=== PATIENT | male | born 1995 | race Two or more races ===

== ENCOUNTER 2025-04-21 06:30 | Day surgery (SDC) | payer MEDICAID, SELFPAY ==
[2025-04-19 09:03] VITALS: BMI 31.1
[2025-04-19 10:39] LABS: Basophils # (Auto) 0.1 Thou/mm3 (0.0-0.2); Basophils % (Auto) 1 % (0-2.5); Eosinophils # (Auto) 0.3 Thou/mm3 (0.0-0.5); Eosinophils % (Auto) 4 % (0-10); Hematocrit 41.6 % (41.0-53.0); Hemoglobin 13.8 g/dL (13.5-16.0); Immature Granulocytes Auto 0.02 Thou/mm3 (0.00-0.00); Lymphocytes # (Auto) 2.5 Thou/mm3 (1.0-4.8); Lymphocytes % (Auto) 35 % (10-50); Mean Corpuscular HGB Conc 33.2 g/dl (31.0-37.0); Mean Corpuscular Hemoglobin 29.2 pg (25.0-35.0); Mean Corpuscular Volume 88 fL (80-100); Monocytes # (Auto) 0.6 Thou/mm3 (0.0-0.8); Monocytes % (Auto) 8 % (0-12); Neutrophils # (Auto) 3.7 Thou/mm3 (1.8-7.7); Neutrophils % (Auto) 52 % (37-80); Nucleated Red Blood Cell # 0.00 Thou/mm3 (0.00-0.00); Nucleated Red Blood Cell % 0 /100 WBC (0); Platelet Count 192 Thou/mm3 (140-440); RDW Standard Deviation 42.6 fL (35.1-43.9); Red Blood Count 4.72 Miln/mm3 (4.50-5.90); White Blood Count 7.2 Thou/mm3 (3.8-10.6)
[2025-04-19 10:47] LABS: Anion Gap 9 (7-16); BUN/Creatinine Ratio 13 Ratio (12-20); Blood Urea Nitrogen 15 mg/dL (9-23); Calcium 9.2 mg/dL (8.3-10.6); Carbon Dioxide 26.6 mMol/L (20.0-31.0); Chloride 106 mMol/L (98-107); Creatinine (Component) 1.2 mg/dL (0.6-1.3); Estimated Creatinine Clearance 92.5 mL/min (>60); Glucose 103 mg/dL (74-106); Osmolality,Calculated 283 (275-295); Potassium 3.9 mMol/L (3.4-5.1); Sodium 142 mMol/L (136-145); eGFR > 60 See Note
--- NOTE | 2025-04-20 13:54 | ESHP_ITS ---
RE: NEEMA BECKMAN : 1995 DATE OF ADMISSION: 04/20/2025 HISTORY OF PRESENT ILLNESS: Patient is a 29-year-old male. He is desiring bilateral vasectomy for family planning. He has 4 children. PAST SURGICAL HISTORY: Previous surgery included left leg surgery. PAST MEDICAL HISTORY: Patient does not have any history of diabetes mellitus or no history of hypertension. ALLERGIES: NONE KNOWN. MEDICATIONS: None. PHYSICAL EXAMINATION: HEENT: Normal. Neck: Supple. Lungs: Clear. Cardiovascular: Heart sounds are normal. Abdomen: Soft without any organomegaly, no guarding, no rigidity. Extremities: Normal. : Phallus is normal, testes are down in the scrotum. Rectal examination was not performed. IMPRESSION: Patient desiring bilateral vasectomy. PLAN: Plan is bilateral vasectomy. Planned procedure, risks and complications have been discussed with the patient. Patient has understood them and agreed to proceed. DT: 13:47:28 TT: 13:52:00 Ref: [id number] - TID: [id number]
[2025-04-21] VITALS (8 sets, daily range): BP systolic 91–122; BP diastolic 60–78; PULSE 70–106; RESP 14–20; TEMP 36.4–36.5; O2SAT 94–99; BMI 30.3
--- NOTE | 2025-04-21 09:26 | SUR.PHASEI ---
0926: pt received from OR via [employer]. received report from TALHA Sethi and Per Nuñez CRNA. pt sleepy with nasal airway in place. no s/s of resp. distress or discomfort. no s/s of pain or discomfort. dressing to penis clean, dry and intact. scrotal support in place.
--- NOTE | 2025-04-21 09:27 | SUR.PHASEI ---
0927: removed nasal airway at this time, tolerated well.
--- NOTE | 2025-04-21 09:44 | SUR.PHASEI ---
0944: pt able to open his eyes but drifts back to sleep. no s/s of resp. distress or discomfort. denies any pain or discomfort.
--- NOTE | 2025-04-21 09:55 | SUR.PHASEI ---
0955: pt arousable and able open to eyes but drifts back to sleep. no s/s of resp. distress or discomfort. denies any pain or discomfort when asked. dressing to penis clean, dry and intact. scrotal support in place.
--- NOTE | 2025-04-21 10:01 | SUR.PHASEII ---
1001: pt awake and alert. able to drink water with ice chips without any difficulty.
--- NOTE | 2025-04-21 10:41 | SUR.PHASEII ---
1041: pt sitting down in the wheelchair ready for discharge. pt requested to talk to Dr. Chung for excuse letter for his work, waiting Dr. Chung at this time. Emy with the patient. no s/s of resp. distress or discomfort. denies any pain or discomfort. all belongings brought given back to patient.
--- NOTE | 2025-04-21 10:41 | SUR.PHASEII ---
1041: discharge instructions given to Emy and pt, verbalizes understanding. pt alert and oriented. no s/s of resp. distress or discomfort. denies any pain or discomfort. dressing to penis clean, dry and intact. scrotal support in place.
--- NOTE | 2025-04-21 10:55 | SUR.PHASEII ---
1055: Dr. Chung talked to patient and . Per MD, okayed to be off for a week. Dr's note will be given on Thursday in his office. Pt alert and oriented. no s/s of resp. distress or discomfort. denies any pain or discomfort. dressing to penis clean, dry and intact with scrotal support. discharge patient visa wheelchair at this time.
--- NOTE | 2025-04-21 11:46 | ESOP_ITS ---
RE: NEEMA BECKMAN : 1995 DATE OF OPERATION: 04/21/2025 PREOPERATIVE DIAGNOSIS: Patient desiring bilateral vasectomy for family planning. POSTOPERATIVE DIAGNOSIS: Patient desiring bilateral vasectomy for family planning. PROCEDURE PERFORMED: Bilateral vasectomy. ANESTHESIA: General. INDICATION: Patient is a 30-year-old gentleman desiring bilateral vasectomy for family planning. He was now scheduled for bilateral vasectomy. Planned procedure, risks, and complications have been discussed with the patient. Patient understood them and agreed to proceed. DESCRIPTION OF PROCEDURE: After the patient was brought to the operating table under adequate general anesthesia in supine position, parts were prepped and draped in the usual fashion. Right vas deferens was made subcutaneous. Transverse incision of 0.5 cm was made over the right vas deferens. Skin and subcutaneous tissues were incised. A small segment of the vas deferens was isolated and 2 clamps were placed on the vas deferens and the segment between the clamps was excised and was sent for histological examination. The end of the vas deferens were fulgurated and ligated using 3-0 chromic catgut sutures. Complete hemostasis was obtained. Skin wound was closed with interrupted sutures of 3-0 chromic catgut. In a similar fashion, the left sided vasectomy was also done. Local anesthetic was injected at the site of the skin. Sterile dressing was then applied. Patient was then transferred to the recovery room in a satisfactory condition having tolerated the entire procedure well. Sponge count and needle count at the end of the procedure was found to be correct. Estimated blood loss was minimal. DT: 11:16:12 TT: 11:45:00 Ref: [id number] - TID: [id number]
== END 2025-04-21 10:55 | disposition home or self-care (01) ==
PROVIDERS: PCP Family Medicine; Referring Provider Surgery; Visit Provider Surgery
PROC: (CPT 55250; principal; 2025-04-21 08:30)
DX: Z30.2 Encounter for sterilization (principal)
CPT/HCPCS: 55250; 36415; 80048; 85025; A4649; J0131; J0690; J1885; J2250; J2704; J3010; J3490; L8330; A9270; J1596